=== PATIENT | male | born 1965 | race Caucasian/White ===

== ENCOUNTER 2016-12-23 19:18 | Emergency (ER) | payer OTHER ==
[~2016-12-23] VITALS: Ht 185.4 cm; Wt 138.2 kg
[~2016-12-23 19:18] MED LIST: ALBUAER2 INH; OMEP40CA PO; SYMIN160 INH
[2016-12-23 19:24] VITALS: TEMP 36.7; Ht 185.4 cm; Wt 138.2 kg
[2016-12-23] MEDS ORDERED: SODIUM CHLORIDE 0.9% 1000ML 1,000 ML IV STA (19:41)
[2016-12-23] MEDS ORDERED: MECLIZINE HCL 25 MG TAB PO STA (19:41)
[2016-12-23] MEDS ORDERED: ONDANSETRON INJ 2 MG/ML 2 ML VIAL IV STA (19:41)
--- NOTE | 2016-12-23 19:53 | EMERGENCY ROOM VISIT NOTE ---
History Report prepared by Jeet: Duc Nina Under the Supervision of: Dr. Kentrell Gee M.D. First contact with patient: 19:38 Chief Complaint: DIZZY Stated Complaint: NAUSEA,LIGHTHEADED,ASTHMA,TINGLING History of Present Illness The patient is a 51 year old male who presents to the Emergency Room with complaints of persistent lightheadedness that began 2.5 hours prior to arrival. The patient is also complaining of nausea, and diffuse tingling throughout his body. He states that he was in his shed doing some woodworking on plaques this evening. He took the plaques outside to finish with polyurethane spray. He then took the plaques back into the shed, and turned on a propane heater to warm up. Shortly after this he began to feel lightheaded, shaky, and nauseated. He went into his house and continued to feel ill. He also notes feeling his heart rate elevate, and he became diaphoretic. The patient was also having some difficulty breathing. He did not vomit, and did not go completely unconscious at any time. The patient does have a history of asthma and is recovering from a cold. 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 A total of 10 systems reviewed and were otherwise negative. Past Medical & Surgical Surgical Problems: (1) Hx of cholecystectomy Family History Cancer FH: heart disease Social History Smoking Status: Never Smoker Drug Use: none Marital Status: other (Engaged) Housing Status: lives with significant other Occupation Status: employed Current/Historical Medications Scheduled Budesonide/Formoterol Fumarate (Symbicort 160/4.5 Inhaler ), 2 PUFFS INH BID Meclizine HCl (Meclizine HCl), 1 TAB PO Q6H Scheduled PRN Albuterol (Ventolin Hfa), 2 PUFFS INH Q6 PRN for SOB/Wheezing Allergies Coded Allergies: No Known Allergies (Unverified , 03/19/14) Physical Exam Vital Signs Date Time Temp Pulse Resp B/P Pulse Ox O2 Delivery O2 Flow Rate FiO2 12/23/16 21:06 62 18 99/62 95 Room Air 111/56 12/23/16 20:27 64 123/67 67 123/86 77 132/79 12/23/16 20:20 65 12/23/16 20:06 96 Room Air 12/23/16 20:05 96 Room Air 12/23/16 19:24 36.7 65 16 149/91 96 Room Air Physical Exam GENERAL: Patient is in no acute distress. HEENT: No acute trauma, normocephalic atraumatic, mucous membranes moist, no nasal congestion, no scleral icterus. No nystagmus. TMs are clear bilaterally. NECK: No stridor, no adenopathy, no meningismus, trachea is midline. LUNGS: Clear to auscultation bilaterally, no wheeze, no rhonchi, breath sounds equal. HEART: Without murmurs gallops or rubs, regular rate and rhythm. ABDOMEN: Soft, nontender, bowel sounds positive, no hernias, no peritonitis. EXTREMITIES: No cyanosis or edema, full range of motion of all the joints without pain or difficulty, no signs for acute trauma. NEUROLOGIC: Oriented x 3, no acute motor or sensory deficits, no focal weakness. No pronator drift. SKIN: No rash, no jaundice, no diaphoresis. No cerebellar dysfunction. Medical Decision & Procedures ER Provider Diagnostic Interpretation: Urine dip shows no infection or hematuria. X ray results and stated below per my interpretation and radiologist interpretation. Other radiology results and stated below per my review and radiologist interpretation: CHEST ONE VIEW PORTABLE CLINICAL HISTORY: Altered mental status. Weakness. COMPARISON STUDY: No previous studies for comparison. FINDINGS: Lung volumes are normal. There is no consolidation. Linear left basilar opacity is suggestive of atelectasis. Cardiac size is normal. Mediastinal contours are normal. There is no evidence of pulmonary edema. IMPRESSION: No acute cardiopulmonary findings. Electronically signed by: Corey Craven M.D. 12/23/2016 8:33 PM Dictated Date/Time: 12/23/2016 8:32 PM Orthostatics: Orthostatic vital signs signs are negative. Laboratory Results 12/23/16 19:58 Red Blood Count 4.98, Mean Corpuscular Volume 82.3, Mean Corpuscular Hemoglobin 28.7, Mean Corpuscular Hemoglobin Concent 34.9, Mean Platelet Volume 9.6, Neutrophils (%) (Auto) 81.9, Lymphocytes (%) (Auto) 12.3, Monocytes (%) (Auto) 4.9, Eosinophils (%) (Auto) 0.6, Basophils (%) (Auto) 0.1, Neutrophils # (Auto) 7.24, Lymphocytes # (Auto) 1.09, Monocytes # (Auto) 0.43, Eosinophils # (Auto) 0.05, Basophils # (Auto) 0.01 12/23/16 19:58 Test 12/23/16 19:58 12/23/16 20:17 White Blood Count 8.84 K/uL (4.8-10.8) Red Blood Count 4.98 M/uL (4.7-6.1) Hemoglobin 14.3 g/dL (14.0-18.0) Hematocrit 41.0 % (42-52) Mean Corpuscular Volume 82.3 fL (80-100) Mean Corpuscular Hemoglobin 28.7 pg (25-34) Mean Corpuscular Hemoglobin Concent 34.9 g/dl (32-36) Platelet Count 177 K/uL (130-400) Mean Platelet Volume 9.6 fL (7.4-10.4) Neutrophils (%) (Auto) 81.9 % Lymphocytes (%) (Auto) 12.3 % Monocytes (%) (Auto) 4.9 % Eosinophils (%) (Auto) 0.6 % Basophils (%) (Auto) 0.1 % Neutrophils # (Auto) 7.24 K/uL (1.4-6.5) Lymphocytes # (Auto) 1.09 K/uL (1.2-3.4) Monocytes # (Auto) 0.43 K/uL (0.11-0.59) Eosinophils # (Auto) 0.05 K/uL (0-0.5) Basophils # (Auto) 0.01 K/uL (0-0.2) RDW Standard Deviation 39.8 fL (36.4-46.3) RDW Coefficient of Variation 13.2 % (11.5-14.5) Immature Granulocyte % (Auto) 0.2 % Immature Granulocyte # (Auto) 0.02 K/uL (0.00-0.02) Anion Gap 12.0 mmol/L (3-11) Est Creatinine Clear Calc Drug Dose 141.8 ml/min Estimated GFR () 113.5 Estimated GFR (Non- 97.9 BUN/Creatinine Ratio 14.0 (10-20) Calcium Level 8.9 mg/dl (8.5-10.1) Total Bilirubin 0.4 mg/dl (0.2-1) Aspartate Amino Transf (AST/SGOT) 25 U/L (15-37) Alanine Aminotransferase (ALT/SGPT) 48 U/L (12-78) Alkaline Phosphatase 86 U/L (45-117) Total Protein 7.2 gm/dl (6.4-8.2) Albumin 3.9 gm/dl (3.4-5.0) Globulin 3.3 gm/dl (2.5-4.0) Albumin/Globulin Ratio 1.2 (0.9-2) Thyroid Stimulating Hormone (TSH) 1.360 uIu/ml (0.300-4.500) Carboxyhemoglobin 0.0 % [facility] Laboratory results reviewed by me. Medications Administered Medications (Trade) Dose Ordered Sig/Shantell Route Start Time Stop Time Status Last Admin Dose Admin Ondansetron HCl 4 mg 4 mg NOW STAT IV 12/23/16 19:41 12/23/16 19:47 DC 12/23/16 20:08 4 MG Sodium Chloride (Nss 1000ml) 1,000 ml @ 999 mls/hr Q1H1M STAT IV 12/23/16 19:41 12/23/16 20:41 DC 12/23/16 20:09 999 MLS/HR Meclizine HCl (Antivert Tab) 25 mg NOW STAT PO 12/23/16 19:41 12/23/16 19:47 DC 12/23/16 20:08 25 MG Meclizine HCl (Antivert 25MG Home Pack) 1 homepack UD ONCE PO 12/23/16 21:15 12/23/16 21:16 DC 12/23/16 21:14 1 HOMEPACK ECG Indication: nausea, SOB/dyspnea, tachycardia Rate (beats per minute): 68 Rhythm: normal sinus Findings: no acute ischemic change, no ectopy, other (LVH) ED Course 1939: The patient was evaluated in room B9. A complete history and physical exam was performed. 1940: Ordered Meclizine HCl 25 mg PO, Sodium Chloride 1000 mL @ 999 mL/hr IV, Zofran 4 mg IV. 2103: I reevaluated the patient at this time. He is feeling much better I discussed results and discharge instructions: He verbalized understanding and agreement. The patient is ready for discharge. 2114: Ordered Meclizine HCl 1 homepack. Medical Decision Differential diagnosis include: vertigo, dehydration, carbon monoxide poisoning , electrolyte imbalance, dysrhythmia. There is no leukocytosis or concerning anemia. No significant electrolyte abnormality, kidney failure or hepatitis. The patient appears to be in a euthyroid state. Urine dip does not show infection or hematuria. Orthostatic vital signs are negative. EKG shows a normal sinus rhythm, there is no acute ischemia, no dysrhythmia. Chest x-ray does not show pneumonia, cardiomegaly or pneumothorax. On exam, there were no focal neurologic deficits. The patient was not febrile or toxic. Carbon monoxide level was undetectable. The patient received IV saline, IV Zofran and oral meclizine, he is doing well. I think the patient's presentation is multifactorial. He is recovering from a viral cold and likely is experiencing some inner ear dysfunction. In addition, I think the environment with the polyurethane smell also contributed to his presentation. He is doing well now, I do think he can be discharged home. I will prescribe some meclizine to use as needed. I have encouraged rest and hydration. If worsening, he can return. Impression Primary Impression: Lightheadedness Additional Impression: Near syncope Scribe Attestation The scribe's documentation has been prepared under my direction and personally reviewed by me in its entirety. I confirm that the note above accurately reflects all work, treatment, procedures, and medical decision making performed by me. Departure Information Dispostion Home / Self-Care Prescriptions Meclizine HCl (Meclizine HCl) 25 Mg Tab 1 TAB PO Q6H for Dizziness or Vertigo, #15 TABS Prov: Kentrell Gee M.D. 12/23/16 Referrals Osorio Yañez M.D. (PCP) Forms HOME CARE DOCUMENTATION FORM, IMPORTANT VISIT INFORMATION Patient Instructions [facility] Additional Instructions rest fluids use meclizine 1-2 tab for recurrence of symptoms follow with brando caruso for a recheck this week return if worsening all testing today was ok as we discussed Problem Qualifiers
[2016-12-23 20:06] VITALS: O2SAT 96
[2016-12-23 20:09] LABS: BASO % 0.1 %; BASO ABS # 0.01 K/uL (0-0.2); COMPLETE YES; EOS % 0.6 %; IG% 0.2 %; LYMPH % 12.3 %; LYMPH ABS # 1.09 K/uL (1.2-3.4); MEAN CELL VOLUME 82.3 fL (80-100); MEAN CORPUSCULAR HEMOGLOBIN 28.7 pg (25-34); MEAN CORPUSCULAR HGB CONC 34.9 g/dl (32-36); MEAN PLATELET VOLUME 9.6 fL (7.4-10.4); MONO % 4.9 %; NEUT % 81.9 %; PLATELET COUNT 177 K/uL (130-400); RED BLOOD COUNT 4.98 M/uL (4.7-6.1); WHITE BLOOD COUNT 8.84 K/uL (4.8-10.8)
[2016-12-23 20:34] LABS: CALCIUM 8.9 mg/dl (8.5-10.1); CREATININE 0.91 mg/dl (0.60-1.40); POTASSIUM 3.5 mmol/L (3.5-5.1)
--- NOTE | 2016-12-23 20:34 | DIAGNOSTIC IMAGING REPORT ---
CHEST ONE VIEW PORTABLE CLINICAL HISTORY: Altered mental status. Weakness. COMPARISON STUDY: No previous studies for comparison. FINDINGS: Lung volumes are normal. There is no consolidation. Linear left basilar opacity is suggestive of atelectasis. Cardiac size is normal. Mediastinal contours are normal. There is no evidence of pulmonary edema. IMPRESSION: No acute cardiopulmonary findings. Electronically signed by: Corey Craven M.D. 12/23/2016 8:33 PM Dictated Date/Time: 12/23/2016 8:32 PM
[2016-12-23] MEDS ORDERED: PRVHFAIN INH (20:36)
[2016-12-23 20:45] LABS: ALB/GLOB RATIO 1.2 (0.9-2); THYROID STIMULATING HORMONE 1.36 uIu/ml (0.300-4.500)
[2016-12-23] MEDS ORDERED: ANT25 PO (21:05)
[2016-12-23 21:06] VITALS: BP 111/56; PULSE 62; O2SAT 95
[2016-12-23] MEDS ORDERED: MECLIZINE HCL 25MG HOME PACK PO ONE (21:15)
== END 2016-12-23 21:19 | disposition home or self-care (01) ==
LOC: C.EDB 19:21
DX: R42 Dizziness and giddiness (principal); R55 Syncope and collapse; Z90.49 Acquired absence of other specified parts of digestive tract

== ENCOUNTER → 2017-01-07 | Outpatient (CLI) | payer OTHER ==
[~2017-01-07] MED LIST changes: -ALBUAER2 INH; +ANT25 PO; -OMEP40CA PO; +PRVHFAIN INH
[2017-01-07 12:09] LABS: BASO % 0.3 %; BASO ABS # 0.02 K/uL (0-0.2); COMPLETE YES; HEMATOCRIT 43.5 % (42-52); IG% 0.2 %; LYMPH % 23.3 %; LYMPH ABS # 1.52 K/uL (1.2-3.4); MEAN CORPUSCULAR HEMOGLOBIN 28.4 pg (25-34); MEAN CORPUSCULAR HGB CONC 33.8 g/dl (32-36); MEAN PLATELET VOLUME 10.3 fL (7.4-10.4); MONO % 9.6 %; NEUT % 64.6 %; PLATELET COUNT 206 K/uL (130-400); RED BLOOD COUNT 5.18 M/uL (4.7-6.1); WHITE BLOOD COUNT 6.53 K/uL (4.8-10.8)
[2017-01-07 12:19] LABS: ALT/SGPT 41 U/L (12-78); BLOOD UREA NITROGEN 13 mg/dl (7-18); BUN/CREATININE RATIO 15.4 (10-20); CALCIUM 8.9 mg/dl (8.5-10.1); CARBON DIOXIDE 29 mmol/L (21-32); CHLORIDE 102 mmol/L (98-107); CREATININE 0.87 mg/dl (0.60-1.40); GLUCOSE 96 mg/dl (70-99); GLUCOSE,FASTING 96 mg/dl (70-99); SODIUM 137 mmol/L (136-145)
[2017-01-07 12:24] LABS: CHOLESTEROL/HDL RATIO 4.8
[2017-01-07 12:30] LABS: ALB/GLOB RATIO 1.1 (0.9-2); ALKALINE PHOSPHATASE 87 U/L (45-117); AST/SGOT 20 U/L (15-37)
== END | disposition home or self-care (01) ==
LOC: C.LAB1850 10:31
PROVIDERS: ATTEND Internal Medicine Pulmonary Disease
DX: J30.9 Allergic rhinitis, unspecified (principal); Z00.00 Encounter for general adult medical examination without abnormal findings